=== PATIENT | female | born 1960 | race Caucasian/White ===

== ENCOUNTER 2016-06-18 16:23 | Emergency (ER) | payer OTHER | END 2016-06-19 00:26 | disposition home or self-care (01) | LOC: ER1 16:23 | DX: S63.91XA Sprain of unspecified part of right wrist and hand, initial encounter (principal); S63.92XA Sprain of unspecified part of left wrist and hand, initial encounter; S60.416A Abrasion of right little finger, initial encounter; W19.XXXA Unspecified fall, initial encounter; Z91.81 History of falling | CPT/HCPCS: 73130; 90471; 90715; 99283 ==

== ENCOUNTER 2020-07-14 07:58 | Emergency (ER) | payer SELFPAY ==
[~2020-07-14 07:58] MED LIST: OMNICEF 300 MG300 MG PO
[2020-07-14] MEDS ORDERED: IBUPROFEN800 MG PO (09:28)
== END 2020-07-14 09:26 | disposition home or self-care (01) ==
LOC: ER1 07:58
DX: S61.112A Laceration without foreign body of left thumb with damage to nail, initial encounter (principal); F17.210 Nicotine dependence, cigarettes, uncomplicated; W26.0XXA Contact with knife, initial encounter; Y92.89 Other specified places as the place of occurrence of the external cause; Y99.0 Civilian activity done for income or pay; Z23 Encounter for immunization
CPT/HCPCS: 12001; 90471; 90714; 99282

== ENCOUNTER 2020-08-16 23:02 | Emergency (ER) | payer OTHER ==
[~2020-08-16 23:02] MED LIST changes: +IBUPROFEN800 MG PO
[2020-08-16 23:34] LABS: HEMOGLOBIN 13.4 gm/dl (12.3-15.3); RED BLOOD COUNT 4.29 M/UL (4.00-5.10); WHITE BLOOD COUNT 4.1 K/UL (4.5-11.0)
[2020-08-16 23:45] LABS: BUN/CREATININE RATIO 16 (0-10)
== END 2020-08-17 01:50 | disposition home or self-care (01) ==
LOC: ER1 23:02
PROVIDERS: Family Medicine
DX: S00.03XA Contusion of scalp, initial encounter (principal); F17.200 Nicotine dependence, unspecified, uncomplicated; Z91.018 Allergy to other foods; Y04.2XXA Assault by strike against or bumped into by another person, initial encounter
CPT/HCPCS: 70450; 71045; 72125; 72170; 80053; 85025; 93005; 99284

== ENCOUNTER → 2021-08-30 | Outpatient (CLI) | payer OTHER ==
[2021-08-30 16:17] LABS: HEMOGLOBIN 12.9 gm/dl (12.3-15.3); RED BLOOD COUNT 4.23 M/UL (4.00-5.10); WHITE BLOOD COUNT 4.4 K/UL (4.5-11.0)
[2021-08-30 16:52] LABS: BUN/CREATININE RATIO 37 (0-10)
[2021-08-31 08:19] LABS: HIV AB/P24 AG SCREEN Non Reactive (Non Reactive)
[2021-08-31 09:19] LABS: VITAMIN D, 25-HYDROXY 26.2 ng/mL (30.0-100.0)
[2021-09-01 20:13] LABS: HBSAG SCREEN Negative (Negative); HCV AB >11.0 (0.0-0.9); HCV LOG10 6.199 (.); HEP A AB, IGM Negative (Negative); HEP B CORE AB, IGM Negative (Negative); HEPATITIS C QUANTITATION 1580000 IU/mL (.)
[2021-09-02 12:09] LABS: QUANTIFERON MITOGEN VALUE >10.00 IU/mL (.); QUANTIFERON NIL VALUE 0.04 IU/mL (.); QUANTIFERON TB1 AG VALUE 0.03 IU/mL (.); QUANTIFERON TB2 AG VALUE 0.05 IU/mL (.); QUANTIFERON-TB GOLD PLUS Negative (Negative)
== END ==
LOC: LAB 14:35
PROVIDERS: Preventive Medicine Occupational Medicine
DX: Z53.9 Procedure and treatment not carried out, unspecified reason (principal)
CPT/HCPCS: 36415; 80053; 80061; 80074; 82140; 82607; 82728; 83036; 83540; 83735; 84439; 84443; 85027; 87389